=== PATIENT | female | born 1960 | race Caucasian/White ===

== ENCOUNTER → 2020-06-20 | Outpatient (CLI) | payer BC ==
[~2020-06-20] MED LIST: CLARITIN10 MG PO; LISINOPRIL HCTZ1 TAB PO
== END | disposition home or self-care (01) ==
LOC: COVID19 11:37
PROVIDERS: ATTEND Family Medicine
DX: R50.9 Fever, unspecified (principal); Z20.822 Contact with and (suspected) exposure to COVID-19

== ENCOUNTER 2021-08-02 06:03 | Emergency (ER) | payer BC ==
[~2021-08-02] VITALS: Wt 59.0 kg
[2021-08-02 06:38] LABS: BASO # 0.1 10*3/uL (0.0-0.1); BASO % 0.4 % (0.0-1.0); EOS % 0.2 % (1.0-4.0); LYMPH # 1.2 10*3/uL (1.3-4.4); LYMPH % 8.5 % (27.0-41.0); MEAN CELL VOLUME 86.2 fl (81.0-99.0); MEAN CORPUSCULAR HGB 28.9 pg (27.0-31.0); MEAN CORPUSCULAR HGB CONC 33.5 g/dl (33.0-37.0); MEAN PLATELET VOLUME 9.6 fl (9.6-12.3); MONO # 0.6 10*3/uL (0.1-1.0); MONO % 4.3 % (3.0-9.0); NEUT # 11.8 10*3/uL (2.3-7.9); NEUT % 86.2 % (47.0-73.0); PLATELET COUNT AUTOMATED 298 10*3/uL (130-400); RED BLOOD COUNT 4.64 10*6/uL (4.10-5.10); RED CELL DISTRI WIDTH 14.1 % (0-14.5); WHITE BLOOD COUNT 13.7 10*3/uL (4.8-10.8)
[2021-08-02 07:09] LABS: CREATININE 1.28 mg/dL (0.55-1.02); POTASSIUM 3.7 mmol/L (3.5-5.1)
[2021-08-02 08:44] LABS: BILIRUBIN Negative (Negative); BLOOD 2+ (Negative); CLARITY Cloudy (Clear); COLOR Yellow (Yellow); GLUCOSE 2+ (Negative); KETONE 3+ (Negative); LEUKO ESTERASE Negative (Negative); NITRITE Negative (Negative); SPECIFIC GRAVITY >= 1.030 (1.001-1.030)
[2021-08-02] MEDS ORDERED: REGLAN10 M1 PO (08:44)
[2021-08-02] MEDS ORDERED: TYLENOL325 M1 PO (08:44)
[2021-08-02 08:51] LABS: CALCIUM OXALATE CRYSTALS 3+; WBC 0-2 wbc/hpf (0-5)
[2021-08-02 08:52] LABS: BACTERIA TRACE
== END 2021-08-02 08:51 | disposition home or self-care (01) ==
LOC: ED 06:03
PROVIDERS: Emergency Medicine
DX: N23 Unspecified renal colic (principal); I70.0 Atherosclerosis of aorta; K80.80 Other cholelithiasis without obstruction; I12.9 Hypertensive chronic kidney disease with stage 1 through stage 4 chronic kidney disease, or unspecified chronic kidney disease; N18.30 Chronic kidney disease, stage 3 unspecified; Z79.899 Other long term (current) drug therapy; Z98.890 Other specified postprocedural states

== ENCOUNTER 2022-07-11 12:38 | Emergency (ER) | payer BC ==
[~2022-07-11] VITALS: Ht 160 cm; Wt 60.8 kg
[~2022-07-11 12:38] MED LIST changes: +REGLAN10 M1 PO; +TYLENOL325 M1 PO
[2022-07-11] MEDS ORDERED: LISINOPRIL30 MG PO (13:28)
[2022-07-11] MEDS ORDERED: METOPROLOL SUCC25 M2 PO (13:28)
[2022-07-11] MEDS ORDERED: IBUPROFEN600 MG PO (14:32)
== END 2022-07-11 15:20 | disposition home or self-care (01) ==
LOC: ED 12:38
DX: S82.831A Other fracture of upper and lower end of right fibula, initial encounter for closed fracture (principal); I10 Essential (primary) hypertension; Z98.890 Other specified postprocedural states; X50.1XXA Overexertion from prolonged static or awkward postures, initial encounter; Y93.89 Activity, other specified; Y92.89 Other specified places as the place of occurrence of the external cause; Y99.8 Other external cause status

== ENCOUNTER → 2022-08-27 | Outpatient (CLI) | payer BC ==
[~2022-08-27] MED LIST changes: +IBUPROFEN600 MG PO; +LISINOPRIL30 MG PO; +METOPROLOL SUCC25 M2 PO
== END | disposition home or self-care (01) ==
LOC: RAD 01:08
PROVIDERS: ATTEND Orthopaedic Surgery
DX: M81.0 Age-related osteoporosis without current pathological fracture (principal); M85.852 Other specified disorders of bone density and structure, left thigh